=== PATIENT | male | born 1965 ===

== ENCOUNTER 2017-09-29 14:18 | Day surgery (SDC) | payer OTHER ==
[~2017-09-29 14:18] MED LIST: IBUP800 PO; Nicoderm Cq1 EACH TD; Wellbutrin Sr200 MG PO
== END 2017-09-29 14:39 | disposition home or self-care (01) ==
LOC: ORSCSDS 14:18
DX: Z12.11 Encounter for screening for malignant neoplasm of colon (principal); Z53.9 Procedure and treatment not carried out, unspecified reason
CPT/HCPCS: J1100

== ENCOUNTER 2017-11-17 13:27 | Day surgery (SDC) | payer OTHER ==
[~2017-11-17] VITALS: Ht 154.9 cm; Wt 86.8 kg
[2017-11-17] MEDS ORDERED: PSEU120ER (14:21)
== END 2017-11-17 16:55 | disposition home or self-care (01) ==
LOC: ORSCSDS 13:27
PROVIDERS: Internal Medicine Gastroenterology
PROC: 0DBM8ZX Excision of Descending Colon, Via Natural or Artificial Opening Endoscopic, Diagnostic (ICD-10-PCS; principal; 2017-11-17 14:45)
PROC: 0DBN8ZX Excision of Sigmoid Colon, Via Natural or Artificial Opening Endoscopic, Diagnostic (ICD-10-PCS; principal; 2017-11-17 14:45)
PROC: 0DBK8ZX Excision of Ascending Colon, Via Natural or Artificial Opening Endoscopic, Diagnostic (ICD-10-PCS; principal; 2017-11-17 14:45)
DX: Z12.11 Encounter for screening for malignant neoplasm of colon (principal); D12.4 Benign neoplasm of descending colon; D12.2 Benign neoplasm of ascending colon; K63.5 Polyp of colon; K64.1 Second degree hemorrhoids; B19.20 Unspecified viral hepatitis C without hepatic coma; F17.210 Nicotine dependence, cigarettes, uncomplicated; Z79.899 Other long term (current) drug therapy
CPT/HCPCS: 88305; J2250

== ENCOUNTER 2022-09-20 10:22 | Day surgery (SDC) | payer OTHER ==
[~2022-09-20] VITALS: Ht 152.4 cm; Wt 94.4 kg
[~2022-09-20 10:22] MED LIST changes: +BUPR150ER PO; +LATANOPROST2.5 M3 BOTHEYES; +MULVITA PO; +PSEU120ER PO; +TAMS.4ER PO; -Wellbutrin Sr200 MG PO
--- NOTE | 2022-09-20 12:35 | NUR ---
09/20/22 1235 Taye France PT TO OR WITH THREE INGROWN HAIRS ABOVE GROIN, DR ORDONEZ COVERED THEM WITH 2 OP SITES AFTER PREP WAS DRY
--- NOTE | 2022-09-20 15:56 | NUR ---
Patient up to Ambulate independently. Gait steady. Dressing to procedure site clean, dry, intact with no visible drainage, swelling, erythema or bruising noted. Discharge instructions reviewed with patient. Patient verbalizes understanding. Copy given to patient to take home. Discharged via wheelchair to private car for ride home.
== END 2022-09-20 23:29 | disposition home or self-care (01) ==
LOC: ORSCMMR 10:22 → ORD 12:00 → ORSCMMR 23:29
PROVIDERS: Surgery
PROC: 0YU54JZ Supplement Right Inguinal Region with Synthetic Substitute, Percutaneous Endoscopic Approach (ICD-10-PCS; principal; 2022-09-20 12:00)
PROC: 8E0W4CZ Robotic Assisted Procedure of Trunk Region, Percutaneous Endoscopic Approach (ICD-10-PCS; principal; 2022-09-20 12:00)
DX: K40.90 Unilateral inguinal hernia, without obstruction or gangrene, not specified as recurrent (principal); B19.20 Unspecified viral hepatitis C without hepatic coma; E66.01 Morbid (severe) obesity due to excess calories; Z68.41 Body mass index [BMI] 40.0-44.9, adult; F32.A Depression, unspecified; Z79.899 Other long term (current) drug therapy
CPT/HCPCS: 49650; S2900; A9270; C1781; J0690; J1100; J1885; J2250; J2405; J2704; J2710; J2795; J3010; J7120